=== PATIENT | female | born 1955 | race Hispanic/Latino ===

== ENCOUNTER 2018-06-07 13:38 | Outpatient (CLI) | payer BC | END 2018-06-07 13:39 | disposition home or self-care (01) | LOC: RAD 13:38 | DX: Z12.31 Encounter for screening mammogram for malignant neoplasm of breast (principal) ==

== ENCOUNTER 2018-07-26 09:04 | Outpatient (CLI) | payer BC | END 2018-07-26 09:05 | disposition home or self-care (01) | LOC: RAD 09:04 ==